=== PATIENT | female | born 1960 | race Caucasian/White ===

== ENCOUNTER 2019-11-25 14:40 | Outpatient (CLI) | payer BC ==
--- NOTE | 2019-11-25 15:36 | MMO ---
Bilateral MAMMO Bilat Screen [facility]. CLINICAL HISTORY: Patient is 59 years old and is seen for screening. The patient has no family history of breast cancer. The patient has no personal history of cancer. The patient has a history of right Ultrasound Guided Core Biopsy in 2012 - benign and right Excisional Biopsy at age 14 - benign. VIEWS: The views performed were: bilateral craniocaudal with tomosynthesis and bilateral mediolateral oblique with tomosynthesis. FILMS COMPARED: The present examination has been compared to prior imaging studies performed at [facility] on 07/11/2011 and 07/26/2011. This study has been interpreted with the assistance of computer-aided detection. MAMMOGRAM FINDINGS: There are scattered fibroglandular densities. There is a new spiculated mass at prior biopsy site inner right breast measuring 1.7 cm. New indeterminate calcifications are also noted at this site. In the left breast, there are no suspicious masses, calcifications or areas of architectural distortion. IMPRESSION: FINDING IN THE RIGHT BREAST REQUIRES ADDITIONAL EVALUATION. ADDITIONAL IMAGING. THE RESULTS OF THIS EXAM WERE SENT TO THE PATIENT. ACR BI-RADS Category 0 - Incomplete: Need additional imaging evaluation. [facility] will notify the patient of the need for additional imaging services. MAMMOGRAPHY NOTE: 1. A negative mammogram report should not delay a biopsy if a dominant of clinically suspicious mass is present. 2. Approximately 10% to 15% of breast cancers are not detected by mammography. 3. Adenosis and dense breasts may obscure an underlying neoplasm. Reported by: BRANDYN GARZA MD Electonically Signed: [id number]
== END 2019-11-25 14:41 | disposition home or self-care (01) ==
LOC: BICMAMMO 14:40
PROVIDERS: ATTEND Physician Assistant
DX: Z12.31 Encounter for screening mammogram for malignant neoplasm of breast (principal); Z91.89 Other specified personal risk factors, not elsewhere classified
CPT/HCPCS: 77063; 77067

== ENCOUNTER → 2019-11-29 | Day surgery (SDC) | payer BC ==
--- NOTE | 2019-11-29 13:46 | ULT ---
Ultrasound guided right breast mass biopsy INDICATION: Suspicious mass in the right breast 2:00 position 6 cm from nipple. COMPARISON: Diagnostic right breast ultrasound dated November 26 2019. TECHNIQUE: Informed consent was obtained. Preprocedure ultrasound verified the irregular hypoechoic s hadowing mass in the right breast 2:00 position 6 cm from the nipple. Site overlying this lesion was sterilely prepped and draped. Buffered 1% lidocaine was administered to overlying subcutaneous ti ssues. A dermatotomy was made. A 14-gauge core biopsy needle was guided down to the lesion. Four separate core samples were obtained of the lesion. Following the fourth sample, a biopsy clip was violette chadd within the lesion in the right breast 2:00 position. Pressure was held at the biopsy site until hemostasis was obtained. The patient is to undergo biopsy clip mammogram images following the procedu re. Patient tolerated procedure without difficulty. IMPRESSION: BI-RADS Category 4-suspicious abnormality. Status post ultrasound-guided core biopsy of t he suspicious right breast mass lesion. Awaiting pathology results. Transcribed Date/Time: 11/29/2019 2:33 PM
--- NOTE | 2019-11-29 13:51 | MMO ---
FILMS COMPARED: The present examination has been compared to prior imaging studies performed at [facility] on 07/26/2011, 11/25/2019 and 11/26/2019. MAMMOGRAM FINDINGS: There are scattered fibroglandular densities. There is an irregular mass with associated biopsy clip seen in the right breast at 2 o'clock. IMPRESSION: MASS IN THE RIGHT BREAST IS SUSPICIOUS. ACR BI-RADS Category 4 - Suspicious abnormality - biopsy should be considered Reported by: OSMEL VALLE MD Electonically Signed: [id number]
== END ==
LOC: BICULT 12:42
PROVIDERS: ATTEND Physician Assistant
PROC: 0H9T3ZX Drainage of Right Breast, Percutaneous Approach, Diagnostic (ICD-10-PCS; principal; 2019-11-29)
DX: C50.211 Malignant neoplasm of upper-inner quadrant of right female breast (principal)
CPT/HCPCS: 19083; 88305; 88341; 88342; 88360

== ENCOUNTER 2019-12-03 09:21 | Outpatient (CLI) | payer BC ==
--- NOTE | 2019-12-03 09:59 | ULT ---
Sonogram right upper quadrant HISTORY: Right upper quadrant pain. FINDINGS: Gallbladder has a normal appearance without stones. Common duct is 0.3 cm diameter. Liver has normal appearance without focal mass or intrahepatic biliary dilatation. No free fluid. IMPRESSION : : Normal exam.
== END 2019-12-03 09:22 | disposition home or self-care (01) ==
LOC: SCSULT 09:21
PROVIDERS: ATTEND Physician Assistant
DX: R10.11 Right upper quadrant pain (principal)
CPT/HCPCS: 76705

== ENCOUNTER 2019-12-10 12:13 | Outpatient (CLI) | payer BC ==
--- NOTE | 2019-12-10 13:13 | RAD ---
XR Chest Pa Lat STANDARD HISTORY: Malignant neoplasm of right upper inner breast COMPARISON: None FINDINGS: The heart size is normal. The lungs are well expanded without focal areas of consolidation, pneumothorax or pleural effusions. IMPRESSION: No radiographic evidence of acute cardiopulmonary process.
== END 2019-12-10 12:14 | disposition home or self-care (01) ==
LOC: BICRAD 12:13
PROVIDERS: ATTEND Internal Medicine Hematology & Oncology
DX: C50.211 Malignant neoplasm of upper-inner quadrant of right female breast (principal)
CPT/HCPCS: 71046

== ENCOUNTER 2019-12-20 06:36 | Outpatient (CLI) | payer BC, OTHER ==
[2019-12-20 14:08] LABS: #Basophils 0.1 thou/uL (0.0-0.2); #Eosinphils 0.1 thou/uL (0.0-0.7); #Lymphocytes 2.8 thou/uL (1.20-3.40); #Monocytes 0.6 thou/uL (0.11-0.59); #Neutrophils 5.7 thou/uL (1.40-6.50); %Basophils 0.8 % (0.0-1.0); %Eosinophils 0.8 % (0.0-10.0); %Lymphocytes 30.2 % (21.0-51.0); %Monocytes 6.8 % (0.0-10.0); %Neutrophils 61.4 % (42.0-75.0); Mean Corpuscular HGB CONC 33.9 g/dL (32.0-36.0); Mean Corpuscular Hemoglobin 30.7 pg (27.0-31.0); Mean Corpuscular Volume 90.6 fL (78.0-98.0); Mean Platelet Volume 8.1 fL (7.4-10.4); Platelet Count 282 thou/uL (130-400); RBC Distribution Width 12.8 % (11.5-14.5); Red Blood Cell (RBC) Count 4.87 mill/uL (4.20-5.40); White Blood Cell (WBC) Count 9.3 thou/uL (4.8-10.8)
[2019-12-20 15:00] LABS: Anion Gap 17 mmol/L (10-20); BUN (Urea Nitrogen) 18 mg/dL (9.8-20.1); Calc. Creatinine Clearance 0 mL/min (70-130); Calcium 9.9 mg/dL (7.8-10.44); Carbon Dioxide 25 mmol/L (23-31); Chloride 104 mmol/L (98-107); Estimated GFR-MDRD 58; Glucose 115 mg/dL (80-115); Sodium 141 mmol/L (136-145)
[2019-12-21 11:59] LABS: SARS-CoV-2 MS2 Positive; SARS-CoV-2 N Gene Negative; SARS-CoV-2 S Gene Negative; SARS-CoV-2 by NAA Not Detected (NotDetected); SARS-CoV-2 orf1ab Negative
--- NOTE | 2019-12-22 12:11 | EKG ---
Test Reason : Blood Pressure : / mmHG Vent. Rate : 072 BPM Atrial Rate : 072 BPM P-R Int : 152 ms QRS Dur : 072 ms QT Int : 354 ms P-R-T Axes : 071 056 058 degrees QTc Int : 387 ms Normal sinus rhythm Normal ECG No previous ECGs available Confirmed by CLAUDIO MCCARTNEY (2) on 12/22/2019 12:10:53 PM Referred By: GAVINO Confirmed By:CLAUDIO MCCARTNEY
[2019-12-25 10:41] LABS: AST (SGOT) 19 U/L (5-34); Albumin 4.7 g/dL (3.4-4.8); Alkaline Phosphatase 53 U/L (40-110); Bilirubin, Total 0.6 mg/dL (0.2-1.2); Globulin 2.9 g/dL (2.4-3.5); Protein, Total 7.6 g/dL (5.8-8.1)
[2019-12-25 10:42] LABS: ALT (SGPT) 23 U/L (8-55)
== END 2019-12-20 06:37 | disposition home or self-care (01) ==
LOC: LABBT 06:36
PROVIDERS: ATTEND Surgery
DX: Z01.818 Encounter for other preprocedural examination (principal); C50.919 Malignant neoplasm of unspecified site of unspecified female breast; Z20.828 Contact with and (suspected) exposure to other viral communicable diseases
CPT/HCPCS: 80048; 85025; 87635; 93005; 93010; U0003

== ENCOUNTER 2019-12-20 11:31 | Outpatient (CLI) | payer BC, OTHER ==
--- NOTE | 2019-12-20 14:19 | NM ---
Radionucleotide hepatobiliary scan with gallbladder ejection fraction HISTORY: Abdominal pain. FINDINGS: Early images show physiologic uptake of radiotracer throughout the hepatic parenchyma. Gall bladder first seen at 6 minutes. Uptake evident within the small bowel at 34 minutes. After demonstration of fatty meal, there is some excretion of radiotracer from the gallbladder to the small bowel. Ejection fraction calculated at 27%. IMPRESSION : No evidence of biliary obstruction. Abnormal gallbladder ejection fraction. Indicative of chronic gallbladder dyskinesis.
== END 2019-12-20 11:32 | disposition home or self-care (01) ==
LOC: NM 11:31
PROVIDERS: ATTEND Surgery
DX: R10.9 Unspecified abdominal pain (principal)
CPT/HCPCS: 78227; 80048; 85025; 87635; 93005; A9537; U0003

== ENCOUNTER 2019-12-25 06:39 | Day surgery (SDC) | payer BC ==
[2019-12-24 10:00] VITALS: BMI 25.2
[2019-12-25] MEDS ORDERED: Isosulfan Blue 50 MG/5 ML VIAL ONE (08:44)
[2019-12-25] MEDS ORDERED: Bupivacaine/Epinephrine 0.25% 30 ML VIAL ONE ×2 (08:44→12:59)
--- NOTE | 2019-12-25 08:57 | NM ---
PROCEDURE: Lymphoscintigraphy of the right breast HISTORY: Right 2:00 breast cancer ELECTRIC SIGN WIRER: Doreen AGENT: 393 uCi of technetium 99 M filtered sulfur colloid TECHNIQUE: The breast was prepped with alcohol in the periareolar region. The radiopharmaceutical was injected into 4 spots surrounding the nipple at the 12:00, 3:00, 6:00, and 9:00 positions. Massage was performed of the breast helping the radiopharmaceutical enter the lymphatics. Images obta ined showed uptake of the radiopharmaceutical within 2 right axillary lymph nodes. IMPRESSION: Right axillary sentinel lymph nodes
[2019-12-25] MEDS ORDERED: Ketorolac Tromethamine 30 MG/ML VIAL ONE (09:31)
[2019-12-25] MEDS ORDERED: Acetaminophen 500 MG TAB ONE (09:31)
[2019-12-25] MEDS ORDERED: Fentanyl 250 MCG/5 ML VIAL ONE (10:51)
[2019-12-25] MEDS ORDERED: Midazolam HCl 5 mg/5 ml Vial ONE (10:51)
[2019-12-25] MEDS ORDERED: Vecuronium 10 MG VIAL ONE (10:54)
[2019-12-25] MEDS ORDERED: Metoclopramide HCl 10 MG/2 ML VIAL ONE (10:54)
[2019-12-25] MEDS ORDERED: PROPOFOL 200 MG/20 ML VIAL ONE (10:54)
[2019-12-25] MEDS ORDERED: Dexamethasone 20 MG/5 ML VIAL ONE (10:54)
[2019-12-25] MEDS ORDERED: EPHEDRINE 25 MG/5 ML SYRINGE ONE (10:54)
[2019-12-25] MEDS ORDERED: Ondansetron PF 4 MG/2 ML Vial ONE (10:54)
[2019-12-25] MEDS ORDERED: Lidocaine 1% PF 5 ML VIAL ONE (10:54)
[2019-12-25] MEDS ORDERED: Glycopyrrolate 0.2 MG/ML 5 ML SYRINGE ONE (10:54)
--- NOTE | 2019-12-25 13:52 | MMO ---
EXAM: SURGICAL SPECIMEN RADIOGRAPH: 12/25/19 FINDINGS: Single view of the specimen radiograph demonstrates a biopsy clip. Findings were conveyed to the OR Lion Booth the gambling monitor, 12/25/19 at 1:38 p.m. Code CR POS: [id number]
--- NOTE | 2019-12-26 16:17 | PDOC.OP ---
Operative Note - Operative Note Operative Note: PROCEDURE: Right breast lumpectomy and sentinel lymph node biopsy, and laparoscopic cholecystectomy SURGEON: Jared Carlson M.D. DATE: 12/25/2019 PREOPERATIVE DIAGNOSIS: Right breast cancer and biliary dyskinesia POSTOPERATIVE DIAGNOSIS: Right breast cancer and biliary dyskinesia HISTORY: Patient with newly diagnosed right breast cancer which is clinically T1 a N0 M0. She has decided to proceed with lumpectomy and sentinel lymph node biopsy for surgical management, postoperative radiation therapy. She also has fairly chronic right upper quadrant pain and an abnormal HIDA scan with a low ejection fraction consistent with biliary dyskinesia and has decided to undergo laparoscopic cholecystectomy under the same anesthesia. Gallbladder ultrasound did not show any stones and her LFTs are normal. PROCEDURE IN DETAIL: After informed consent was obtained the patient was taken to the operating room and placed in the supine position. General anesthesia was administered and the breast was prepped with alcohol and lymphazurin injected subdermally behind the nipple. The breast was massaged for 5 minutes, and then the patient was positioned, prepped and draped. Local anesthesia was infused to the lower edge of the hairbearing skin of the axilla. The skin was incised and dissection carried down to the area of highest activity by neoprobe. 2 lymph nodes with increased activity were identified and excised and target counts performed. The first one had a target count of 781 and was not blue. The second one had a target count of 1181 and was blue in color. An additional small lymph node adjacent to sentinel lymph node #2 with a blue lymphatic was identified and excised. This did not have an elevated target count; however, since it had a lymphatic draining into the hilum it was sent as sentinel lymph node #3. The axilla was examined and palpated and no other palpable abnormal nodes nor areas of increased activity were found. The wound was irrigated and hemostasis verified. Additional local anesthesia was infused for postoperative pain control and the subcutaneous tissues were reapproximated with 3-0 Monocryl suture and the skin closed with 4-0 Monocryl suture. Attention was then turned to the lumpectomy. The mass in the right medial breast was palpated and confirmed by ultrasound. The margins of the mass were identified using the ultrasound and marked on the overlying skin and a periareolar incision made oriented and slightly oblique direction so that it would be able to be removed with mastectomy incision. Flaps were raised in all directions and dissection was then carried down circumferentially to below the level of the mass. The tissues deep to the mass were then transected and the specimen was removed and marked for orientation with a long lateral (toward the nipple), short superior, and looped superficial suture. It was sent for specimen mammogram which showed presence of the clip within the specimen. The wound was irrigated and hemostasis obtained using Bovie electrocautery. Additional local anesthesia was infused circumferentially for postoperative pain control. The subcutaneous tissues were reapproximated in 2 layers with a running 3-0 Monocryl suture. The skin was then closed with a running 4-0 subcuticular Monocryl suture. Dermabond dressings were placed to both incisions and once this was dry, fluffs compression dressings were placed and secured to the skin with tape. Attention was then turned to laparoscopic cholecystectomy. The patient was reprepped and redraped and all new instruments and new gown and gloves were used for this portion of the case. The stomach was decompressed with an OG tube and the abdomen was prepped and draped in standard sterile fashion. Local anesthesia was infused to the skin and subcutaneous tissues at the umbilical level. A transverse skin incision was made. The fascia was elevated and a Veress needle was placed into the abdominal cavity without difficulty. Opening pressure was less than 5 and carbon dioxide gas easily insufflated to an intra-abdominal pressure of 15, which the patient tolerated well. The Veress needle was withdrawn and a [place] port advanced under direct vision. The abdominal cavity was carefully examined. There was no evidence of Veress needle or of trocar injury. Local anesthesia was infused to the skin and subcutaneous tissues at the epigastric, right upper quadrant, and right lateral abdominal sites and trocars were placed under direct vision of the laparoscope. Only 5 mm ports were used. The fundus of the gallbladder was grasped and retracted superiorly. The infundibulum was grasped and retracted l aterally. The serosa was stripped inferiorly at the level of the neck of the gallbladder exposing the cystic duct and artery which were traced clearly to their insertion in the gallbladder. Critical view of safety was obtained and the cystic duct and artery were clipped and divided between clips. The gallbladder was then dissected free of the gallbladder bed using hook electrocautery. During this process a small hole was made in the gallbladder due to the thin-walled nature of the gallbladder but minimal bile was spilled. The remainder of the bile was suctioned out through the hole in the gallbladder. Prior to complete removal of the gallbladder from the gallbladder bed, the area of the cystic duct and artery stumps was examined. The clips were in good position completely across these structures and there was no bleeding and no leakage of bile. The gallbladder was then placed into an EndoCatch bag and drawn out through the epigastric incision. The epigastric trocar was replaced and the operative site easily irrigated to clear. There was no significant bleeding or spillage of bile. The epigastric, right upper quadrant, and right lateral abdominal trocars were removed and hemostasis verified. Carbon dioxide gas was allowed to desufflate through the umbilical trocar which was then removed. The skin incisions were closed with 4-0 subcuticular Monocryl sutures and Dermabond dressings were placed. The patient was extubated and taken to the recovery room in good condition. There were no complications. Estimated blood loss was minimal. There were no complications. Specimens are sentinel lymph nodes x3 and right medial breast mass and gallbladder.
== END 2019-12-25 15:50 | disposition home or self-care (01) ==
LOC: SDC 06:39
PROVIDERS: ATTEND Surgery
PROC: 07B50ZX Excision of Right Axillary Lymphatic, Open Approach, Diagnostic (ICD-10-PCS; principal; 2019-12-25)
PROC: 0HBT0ZZ Excision of Right Breast, Open Approach (ICD-10-PCS; principal; 2019-12-25)
PROC: 0FT44ZZ Resection of Gallbladder, Percutaneous Endoscopic Approach (ICD-10-PCS; principal; 2019-12-25)
DX: C50.111 Malignant neoplasm of central portion of right female breast (principal); K82.8 Other specified diseases of gallbladder; E78.00 Pure hypercholesterolemia, unspecified; F41.9 Anxiety disorder, unspecified; K21.9 Gastro-esophageal reflux disease without esophagitis; Z88.5 Allergy status to narcotic agent; Z17.0 Estrogen receptor positive status [ER+]; Z79.899 Other long term (current) drug therapy
CPT/HCPCS: 76098; 78195; 88304; 88307; 88342; A9541; J0690; J1100; J1885; J2250; J2405; J2704; J2765; J3010; Q9968

== ENCOUNTER 2020-04-09 10:13 | Outpatient (CLI) | payer BC | END 2020-04-09 10:14 | disposition home or self-care (01) | LOC: BICMAMMO 10:13 | PROVIDERS: ATTEND Internal Medicine Hematology & Oncology | DX: Z13.820 Encounter for screening for osteoporosis (principal); C50.211 Malignant neoplasm of upper-inner quadrant of right female breast; Z78.0 Asymptomatic menopausal state; M85.852 Other specified disorders of bone density and structure, left thigh | CPT/HCPCS: 77080 ==

== ENCOUNTER 2023-12-05 08:58 | Outpatient (CLI) | payer BC | END 2023-12-05 08:59 | disposition home or self-care (01) | LOC: BICMAMMO 08:58 | PROVIDERS: ATTEND Internal Medicine Hematology & Oncology | DX: C50.919 Malignant neoplasm of unspecified site of unspecified female breast (principal) | CPT/HCPCS: 77066; G0279 ==